=== PATIENT | male | born 2000 | race Caucasian/White ===

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

== ENCOUNTER 2023-12-03 16:48 | Emergency (ER) | payer OTHER ==
[~2023-12-03] VITALS: Ht 187.9 cm; Wt 79.4 kg
[2023-12-03] MEDS ORDERED: AMOX-CLAV 875-1 EACH PO (17:05)
== END 2023-12-03 17:14 | disposition home or self-care (01) ==
LOC: ED 16:48
DX: K04.7 Periapical abscess without sinus (principal); K02.9 Dental caries, unspecified